=== PATIENT | female | born 1995 | race African-American/Black ===

== ENCOUNTER 2018-05-04 14:06 | Inpatient (IN) ==
[2018-05-04] MEDS: LACTATED RINGERS 1,000 ML IV SCH ×2 (14:45→21:55)
[2018-05-04 15:02] LABS: Basophils % 0.3 % (0.0-0.8); Eosinophils # 0.1 10*3/uL (0.0-0.87); Eosinophils % 1.7 % (0.00-10.9); Hematocrit 29.5 VOL% (35.7-47.0); Hemoglobin 8.7 GM/DL (12.0-16.0); Immature Granulocytes % 0.5 %; Immature Granulocytes Absolute 0.04 #; Lymphocytes # 2.3 10*3/uL (1.4-4.0); Lymphocytes % 28.9 % (21.3-54.2); Mean Corpuscular HGB Conc 29.5 GM/DL (32-36); Mean Corpuscular Hemoglobin 20 PG (27-34); Mean Corpuscular Volume 69.2 FL (87-102); Mean Platelet Volume 9.7 FL (9.6-12.0); Monocytes # 0.6 10*3/uL (0.11-0.8); Monocytes % 7.5 % (1.7-12.7); Neutrophils # 4.8 10*3/uL (1.4-7.4); Neutrophils % 61.1 % (38.7-73.9); Platelet Count 339 T/CUMM (130-400); Red Blood Count 4.26 MC/CUMM (3.8-5.5); Red Cell Distribution Width 17.9 % (9.3-17.3); White Blood Count 7.8 T/CUMM (4-12)
[2018-05-04 15:25] LABS: Alanine Aminotransferase 12 U/L (13-56); Albumin 2.4 G/DL (3.4-5.0); Alkaline Phosphatase 146 U/L (45-117); Aspartate Amino Transferase 14 U/L (0-37); Bilirubin,Total < 0.39 MG/DL (0.2-1.0); Blood Urea Nitrogen 7 MG/DL (7-18); Calcium 8.7 MG/DL (8.5-10.1); Glucose 94 MG/DL (74-106); Osmolality,Calculated 270.8 MOS/KG (273-304); Potassium 3.2 MMOL/L (3.5-5.1); Sodium 137 MMOL/L (136-145); Total Protein 6.8 G/DL (6.4-8.3); Uric Acid 3.6 MG/DL (2.6-6.0)
[2018-05-04] MEDS: ONDANSETRON 4 MG/2 ML VIAL IV PRN (22:02)
[2018-05-04] MEDS: MEPERIDINE 50 MG/1 ML VIAL IV PRN (22:02)
[2018-05-05] MEDS: MEPERIDINE 50 MG/1 ML VIAL IV PRN (02:00)
[2018-05-05] MEDS ORDERED: diphenhydrAMINE 50 MG/1 ML VIAL IV PRN ×2 (03:58)
[2018-05-05] MEDS ORDERED: LACTATED RINGERS 250 ML IV PRN (03:58)
[2018-05-05] MEDS ORDERED: ePHEDrine 50 MG/ML AMP IV PRN (03:58)
[2018-05-05] MEDS ORDERED: hydrOXYzine HCL 25 MG/1 ML VIAL IM PRN (03:58)
[2018-05-05] MEDS ORDERED: PROMETHAZINE 25 MG/1 ML VIAL IM ONE (03:58)
[2018-05-05] MEDS ORDERED: NALOXONE 0.4 MG/ML VIAL IV PRN (03:58)
[2018-05-05] MEDS ORDERED: fentaNYL 2 MCG/ROPIV 0.2% EPID 100 ML EPIDURAL SCH (04:00)
[2018-05-05] MEDS ORDERED: FAMOTIDINE 20 MG/2 ML VIAL IV ONE (04:05)
[2018-05-05] MEDS ORDERED: CITRIC ACID/SODIUM CITRATE 30 ML UDCUP PO ONE (04:05)
[2018-05-05] MEDS: LACTATED RINGERS 1,000 ML IV SCH (06:31)
[2018-05-05] MEDS: OXYTOCIN/LR 20 UNIT/1,000 ML BAG IV SCH ×2 (08:07→15:07)
[2018-05-05 08:15] LABS: Apearance,Urine CLEAR (Clear); Bilirubin,Urine Negative (Negative); Blood, Urine Negative (Negative); Glucose,Urine (UA) Negative (Negative); Ketones,Urine 5 mg/dL (Negative); Nitrite,Urine Negative (Negative); Protein,Urine Negative; RBC,Urine 2 /HPF (0-4); Squamous Epithelial Cell,Urine Occasional /HPF (0-10); Urine Color Yellow (Yellow); Urine Specific Gravity 1.008 (1.001-1.035); Urine Urobilinogen < 2.0 EU/DL (0.2-1.0); WBC,Urine 1 /HPF (0-6)
[2018-05-05] MEDS ORDERED: ACETAMINOPHEN 325 MG TABLET PO PRN ×2 (12:01→18:14)
[2018-05-05] MEDS ORDERED: AMPICILLIN INJ 2,000 MG in SODIUM CHLORIDE 0.9% 100 ML IV ONE (12:01)
[2018-05-05] MEDS ORDERED: cefTRIAXone 1,000 MG in SYRINGE 1 EACH IV ONE (13:47)
[2018-05-05] MEDS ORDERED: LIDOCAINE 1% 50 ML VIAL ONE (13:58)
[2018-05-05] MEDS ORDERED: BUTORPHANOL 1 MG/ML VIAL ONE (14:28)
[2018-05-05] MEDS: ONDANSETRON 4 MG/2 ML VIAL IV PRN (14:30)
[2018-05-05] MEDS ORDERED: BUTORPHANOL 1 MG/ML VIAL IV ONE (14:31)
[2018-05-05] MEDS ORDERED: IBUPROFEN 800 MG TABLET PO ONE (17:29)
[2018-05-05] MEDS ORDERED: ACETAMINOPHEN/CODEINE 300-30 MG TABLET PO PRN (18:14)
[2018-05-05] MEDS ORDERED: BENZOCAINE 20%/MENTHOL 0.5% SPRAY 56 GM CAN TOP PRN (18:14)
[2018-05-05] MEDS ORDERED: WITCH HAZEL PADS 100/JAR TOP PRN (18:14)
[2018-05-05] MEDS ORDERED: MEASLES/MUMPS/RUBELLA VACCINE 0.5 ML VIAL SUBCUT ONE (18:14)
[2018-05-05] MEDS ORDERED: oxyCODONE/ACETAMINOPHEN 5-325 MG TABLET PO PRN (18:14)
[2018-05-05] MEDS ORDERED: RHO(D) IMMUNE GLOBULIN 300 MCG SYRINGE IM ONE (18:14)
[2018-05-05] MEDS ORDERED: LANOLIN 50% CREAM 0.3 OZ TUBE TOP PRN (18:14)
[2018-05-05] MEDS ORDERED: HYDROCORTISONE 2.5% RECTAL CREAM 30 GM TUBE TOP PRN (18:14)
[2018-05-05] MEDS ORDERED: DIPH/TET/ACEL PERT BOOSTER VACCINE 0.5 ML VIAL IM ONE (18:14)
[2018-05-05] MEDS ORDERED: BISACODYL 10 MG SUPP RECTAL PRN (18:14)
[2018-05-05] MEDS: DOCUSATE SODIUM 100 MG CAPSULE PO SCH (20:43)
[2018-05-06] MEDS: IBUPROFEN 800 MG TABLET PO PRN ×2 (04:10→11:59)
[2018-05-06 06:49] LABS: Basophils % 0.2 % (0.0-0.8); Eosinophils # 0.1 10*3/uL (0.0-0.87); Eosinophils % 0.6 % (0.00-10.9); Hematocrit 19.3 VOL% (35.7-47.0); Immature Granulocytes % 0.8 %; Immature Granulocytes Absolute 0.13 #; Lymphocytes % 18.9 % (21.3-54.2); Mean Corpuscular HGB Conc 29.5 GM/DL (32-36); Mean Corpuscular Hemoglobin 20 PG (27-34); Mean Corpuscular Volume 68.2 FL (87-102); Mean Platelet Volume 10.1 FL (9.6-12.0); Monocytes # 1.1 10*3/uL (0.11-0.8); Monocytes % 6.8 % (1.7-12.7); Neutrophils # 11.6 10*3/uL (1.4-7.4); Neutrophils % 72.7 % (38.7-73.9); Platelet Count 234 T/CUMM (130-400); Red Blood Count 2.83 MC/CUMM (3.8-5.5); Red Cell Distribution Width 17.6 % (9.3-17.3)
[2018-05-06 06:55] LABS: Hemoglobin 5.7 GM/DL (12.0-16.0)
[2018-05-06] MEDS ORDERED: SODIUM CHLORIDE 0.9% 1,000 ML IV PRN (07:00)
[2018-05-06] MEDS: oxyCODONE/ACETAMINOPHEN 5-325 MG TABLET PO PRN (07:03)
[2018-05-06 07:32] LABS: Anisocytosis 2+; Hypochromasia 3+; Microcytosis 1+; Ovalocytes Slight; Poikilocytosis 1+
[2018-05-06 07:34] LABS: Elliptocytes Few; Polychromasia Few; Schistocytes Slight; Tear Drop Cells Slight
[2018-05-06 07:35] LABS: Platelet Estimate Normal
[2018-05-06] MEDS: DOCUSATE SODIUM 100 MG CAPSULE PO SCH ×2 (09:15→21:04)
[2018-05-06] MEDS ORDERED: FUROSEMIDE 20 MG/2 ML VIAL IV ONE (10:00)
[2018-05-06 18:11] LABS: Hemoglobin 8.7 GM/DL (12.0-16.0)
[2018-05-07] MEDS: IBUPROFEN 800 MG TABLET PO PRN (03:31)
[2018-05-07] MEDS: DOCUSATE SODIUM 100 MG CAPSULE PO SCH ×2 (09:04→21:01)
[2018-05-07] MEDS: oxyCODONE/ACETAMINOPHEN 5-325 MG TABLET PO PRN (16:23)
[2018-05-08] MEDS: IBUPROFEN 800 MG TABLET PO PRN (04:28)
[2018-05-08] MEDS: DOCUSATE SODIUM 100 MG CAPSULE PO SCH (08:59)
[2018-05-08 12:38] VITALS: BP 122/79
== END 2018-05-08 15:30 | disposition home or self-care (01) | DRG 560 ==
LOC: N.LDOUT 14:06 → N.LD 14:07 → N.OB 05-05 18:15
PROVIDERS: ADMIT Obstetrics & Gynecology; ATTEND Obstetrics & Gynecology